=== PATIENT | female | born 1975 | race Caucasian/White ===

== ENCOUNTER 2021-04-15 15:25 | Inpatient (IN) ==
[2021-04-15 16:28] LABS: Bilirubin,Urine Negative (Negative); Blood,Urine Negative (Negative); Clarity,Urine Clear (Clear); Color,Urine Colorless (Yellow); Glucose,Urine (UA) Normal (Normal); Ketones,Urine Negative (Negative); Leukocyte Esterase,Urine Negative (Negative); Nitrite,Urine Negative (Negative); PH,Urine 6.5 pH Units (5.0-8.0); Protein,Urine Negative (Neg-Trace); Specific Gravity,Urine < 1.005 (1.010-1.025); Urobilinogen,Urine Normal (Normal)
[2021-04-15 16:31] LABS: Amphetamine Screen,Urine Negative ng/mL (Cutoff=1000); Barbiturate Screen,Urine Negative ng/mL (Cutoff=200); Benzodiazepines Screen,Urine Positive ng/mL (Cutoff=200); Cannabinoid Screen,Urine Negative ng/mL (Cutoff = 50); Cocaine Screen,Urine Negative ng/mL (Cutoff= 300); Opiate Screen,Urine Negative ng/mL (Cutoff=300); Phencyclidine Screen,Urine Negative ng/mL (Cutoff=25)
[2021-04-15 16:48] LABS: Acetaminophen < 10 mcg/mL (10-20); BUN/Creatinine Ratio 13 (6-26); Blood Urea Nitrogen 10 mg/dL (6-20); Carbon Dioxide 25 mEq/L (23-29); Chloride 100 mEq/L (98-107); Chol/HDL Ratio 5.3 (0-4.9); Cholesterol 208 mg/dL (< 200); Ethanol < 10 mg/dL (Less than 10); Glucose 98 mg/dL (70-105); HDL Cholesterol 39 mg/dL (40-59); LDL Cholesterol,Calculated 117 mg/dL (< 100); Osmolality,Calculated 287 (280-300); Potassium 4.3 mEq/L (3.5-5.1); Salicylate < 2.5 mg/dL (15.0-30.0); Sodium 139 mEq/L (136-145); Triglycerides 259 mg/dL (< 150); eGFR For African Americans > 60 (> 60); eGFR For Non-African Americans > 60 (> 60)
[2021-04-15 17:15] LABS: Adenovirus Not Detected (Not Detect); Bordetella Pertussis Not Detected (Not Detect); Chlamydophila pneumoniae Not Detected (Not Detect); Coronavirus 229E Not Detected (Not Detect); Coronavirus HKU1 Not Detected (Not Detect); Coronavirus NL63 Not Detected (Not Detect); Coronavirus OC43 Not Detected (Not Detect); Human Metapneumovirus Not Detected (Not Detect); Human Rhinovirus/Enterovirus Not Detected (Not Detect); Influenza A Subtype 2009 H1 Not Detected (Not Detect); Influenza B Not Detected (Not Detect); Mycoplasma pneumoniae Not Detected (Not Detect); Parainfluenza Virus 1 Not Detected (Not Detect); Parainfluenza Virus 2 Not Detected (Not Detect); Parainfluenza Virus 3 Not Detected (Not Detect); Parainfluenza Virus 4 Not Detected (Not Detect); Respiratory Syncytial Virus Not Detected (Not Detect); SARS-CoV-2 Not Detected (Not Detect)
[2021-04-15 17:23] LABS: Basophils # 0.1 K/mcL (0.0-0.2); Basophils % 0.5 %; Eosinophils # 0.4 K/mcL (0.0-0.6); Eosinophils % 2.8 %; Hemoglobin 14.5 g/dL (11.5-15.4); Immature Granulocytes % 0.3 % (0-4); Lymphocytes % 37.1 %; Mean Corpuscular HGB Conc 34.5 g/dL (31.6-35.5); Mean Corpuscular Hemoglobin 30.3 pg (28.0-33.3); Mean Corpuscular Volume 87.7 fL (83.0-100.0); Mean Platelet Volume 10.6 fL (9.4-12.4); Monocytes # 0.9 K/mcL (0.0-1.3); Monocytes % 6.8 %; Platelet Count 300 K/mcL (140-400); Red Blood Count 4.79 M/mcL (3.82-4.97); Red Cell Distribution Width 13.1 % (11.5-14.5); Segmented Neutrophils % 52.5 %; White Blood Count 13.3 K/mcL (4.3-11.1)
[2021-04-15 17:26] LABS: Lymphocytes # 4.9 K/mcL (0.6-4.6)
[2021-04-15 17:37] LABS: Estimated Average Glucose 128 mg/dl; Hemoglobin A1C 6.1 %
[2021-04-15] MEDS ORDERED: *HR* LORazepam 0.5 MG TABLET PO STA (19:16)
[2021-04-15] MEDS ORDERED: haloperidoL 5 MG TABLET PO PRN (20:49)
[2021-04-15] MEDS ORDERED: *HR* LORazepam 1 MG TABLET PO PRN (20:49)
[2021-04-15] MEDS ORDERED: MOM Conc 10 ML UD.LIQ PO PRN (20:49)
[2021-04-15] MEDS ORDERED: Mag Hydrox/Al Hydrox/Simeth 30 ML UDC PO PRN (20:49)
[2021-04-15] MEDS ORDERED: Haloperidol Lactate 5 MG/ML VIAL IM PRN (20:49)
[2021-04-15] MEDS ORDERED: *HR* LORazepam 2 MG/ML VIAL IM PRN (20:49)
[2021-04-15] MEDS ORDERED: Acetaminophen 325 MG TABLET PO PRN (20:49)
[2021-04-15] MEDS ORDERED: traZODone 50 MG TABLET PO PRN (20:49)
[2021-04-15] MEDS: ALPRAZolam 1 MG TABLET PO SCH (23:48)
[2021-04-15] MEDS: traZODone 50 MG TABLET PO SCH (23:48)
[2021-04-16] MEDS: Nicotine 21 MG PATCH.TD24 TD SCH (00:30)
[2021-04-16] MEDS: ALPRAZolam 1 MG TABLET PO SCH ×2 (08:05→21:43)
[2021-04-16] MEDS: Furosemide 40 MG TABLET PO SCH (08:08)
[2021-04-16] MEDS: Ziprasidone 20 MG CAPSULE PO SCH ×2 (09:33→17:23)
[2021-04-16] MEDS: hydrOXYzine pamoate 25 MG CAPSULE PO PRN (19:36)
[2021-04-16] MEDS: traZODone 50 MG TABLET PO SCH (21:43)
[2021-04-17] MEDS: ALPRAZolam 1 MG TABLET PO SCH ×2 (09:03→21:20)
[2021-04-17] MEDS: Ziprasidone 20 MG CAPSULE PO SCH ×2 (09:03→16:24)
[2021-04-17] MEDS: Furosemide 40 MG TABLET PO SCH (09:03)
[2021-04-17] MEDS: Nicotine 21 MG PATCH.TD24 TD SCH (09:04)
[2021-04-17] MEDS ORDERED: Sennosides 8.6 MG TABLET PO PRN (11:54)
[2021-04-17] MEDS: hydrOXYzine pamoate 25 MG CAPSULE PO PRN ×2 (12:10→19:02)
[2021-04-17] MEDS: traZODone 50 MG TABLET PO SCH (21:21)
[2021-04-18] MEDS: Nicotine 21 MG PATCH.TD24 TD SCH (08:29)
[2021-04-18] MEDS: ALPRAZolam 1 MG TABLET PO SCH ×2 (08:30→20:57)
[2021-04-18] MEDS: Furosemide 40 MG TABLET PO SCH (08:30)
[2021-04-18] MEDS: Ziprasidone 20 MG CAPSULE PO SCH ×2 (08:30→17:57)
[2021-04-18] MEDS: traZODone 50 MG TABLET PO SCH (20:57)
[2021-04-19] MEDS: ALPRAZolam 1 MG TABLET PO SCH ×2 (08:47→21:46)
[2021-04-19] MEDS: Furosemide 40 MG TABLET PO SCH (08:47)
[2021-04-19] MEDS: Ziprasidone 20 MG CAPSULE PO SCH ×2 (08:47→17:59)
[2021-04-19] MEDS: Nicotine 21 MG PATCH.TD24 TD SCH (08:47)
[2021-04-19] MEDS ORDERED: polyethylene glycoL 3350 17 GM POWD.PACK PO PRN (11:33)
[2021-04-19] MEDS: traZODone 50 MG TABLET PO SCH (21:46)
[2021-04-20] MEDS: Nicotine 21 MG PATCH.TD24 TD SCH (09:04)
[2021-04-20] MEDS: ALPRAZolam 1 MG TABLET PO SCH ×2 (09:06→21:42)
[2021-04-20] MEDS: Furosemide 40 MG TABLET PO SCH (09:07)
[2021-04-20] MEDS: Ziprasidone 20 MG CAPSULE PO SCH ×2 (09:07→17:42)
[2021-04-20] MEDS: hydrOXYzine pamoate 25 MG CAPSULE PO PRN (18:14)
[2021-04-20] MEDS: traZODone 50 MG TABLET PO SCH (21:43)
[2021-04-21] MEDS: Nicotine 21 MG PATCH.TD24 TD SCH (08:58)
[2021-04-21] MEDS: Furosemide 40 MG TABLET PO SCH (08:59)
[2021-04-21] MEDS: Ziprasidone 20 MG CAPSULE PO SCH ×2 (08:59→18:13)
[2021-04-21] MEDS: ALPRAZolam 1 MG TABLET PO SCH ×2 (08:59→21:50)
[2021-04-21] MEDS: traZODone 50 MG TABLET PO SCH (21:51)
[2021-04-22] MEDS: Nicotine 21 MG PATCH.TD24 TD SCH (09:09)
[2021-04-22] MEDS: Ziprasidone 20 MG CAPSULE PO SCH ×2 (09:11→16:23)
[2021-04-22] MEDS: ALPRAZolam 1 MG TABLET PO SCH ×2 (09:11→21:56)
[2021-04-22] MEDS: Furosemide 40 MG TABLET PO SCH (09:12)
[2021-04-22] MEDS: hydrOXYzine pamoate 25 MG CAPSULE PO PRN (16:27)
[2021-04-22] MEDS: traZODone 50 MG TABLET PO SCH (21:57)
[2021-04-23] MEDS: Nicotine 21 MG PATCH.TD24 TD SCH (09:00)
[2021-04-23] MEDS: Furosemide 40 MG TABLET PO SCH (09:01)
[2021-04-23] MEDS: Ziprasidone 20 MG CAPSULE PO SCH ×2 (09:01→17:37)
[2021-04-23] MEDS: ALPRAZolam 1 MG TABLET PO SCH (09:01)
[2021-04-23] MEDS: clonazePAM 1 MG TABLET PO SCH (21:47)
[2021-04-23] MEDS: traZODone 50 MG TABLET PO SCH (22:04)
[2021-04-23 22:52] LABS: Bacteria,Urine Few per hpf (None-Few); Bilirubin,Urine Negative (Negative); Blood,Urine Negative (Negative); Calcium Oxalate Crystals,Urine Present per hpf; Clarity,Urine Clear (Clear); Color,Urine Colorless (Yellow); Glucose,Urine (UA) Normal (Normal); Ketones,Urine Negative (Negative); Leukocyte Esterase,Urine Large (Negative); Nitrite,Urine Negative (Negative); Protein,Urine Negative (Neg-Trace); RBC,Urine 0-3 per hpf (0-3); Specific Gravity,Urine 1.005 (1.010-1.025); Squamous Epithelial Cell,Urine Few per hpf (None-Few); Urobilinogen,Urine Normal (Normal); WBC,Urine 15-30 per hpf (0-3)
[2021-04-24] MEDS: Nicotine 21 MG PATCH.TD24 TD SCH (08:58)
[2021-04-24] MEDS: clonazePAM 1 MG TABLET PO SCH ×2 (08:58→21:46)
[2021-04-24] MEDS: Ziprasidone 20 MG CAPSULE PO SCH ×2 (08:58→15:34)
[2021-04-24] MEDS: Furosemide 40 MG TABLET PO SCH (08:58)
[2021-04-24] MEDS: traZODone 50 MG TABLET PO SCH (21:46)
[2021-04-24] MEDS: Sulfamethoxazole/Trimeth DS 1 EACH TABLET PO SCH (21:47)
[2021-04-24] MEDS: hydrOXYzine pamoate 25 MG CAPSULE PO PRN (23:21)
[2021-04-25] MEDS: clonazePAM 1 MG TABLET PO SCH ×2 (08:52→21:18)
[2021-04-25] MEDS: Sulfamethoxazole/Trimeth DS 1 EACH TABLET PO SCH ×2 (08:52→21:17)
[2021-04-25] MEDS: Furosemide 40 MG TABLET PO SCH (08:53)
[2021-04-25] MEDS: Ziprasidone 20 MG CAPSULE PO SCH ×2 (08:53→17:09)
[2021-04-25] MEDS: Nicotine 21 MG PATCH.TD24 TD SCH (08:53)
[2021-04-25] MEDS: traZODone 50 MG TABLET PO SCH (21:17)
[2021-04-26] MEDS: Ziprasidone 20 MG CAPSULE PO SCH ×2 (09:11→16:08)
[2021-04-26] MEDS: Furosemide 40 MG TABLET PO SCH (09:11)
[2021-04-26] MEDS: Sulfamethoxazole/Trimeth DS 1 EACH TABLET PO SCH ×2 (09:11→21:51)
[2021-04-26] MEDS: clonazePAM 1 MG TABLET PO SCH ×2 (09:12→21:50)
[2021-04-26] MEDS: Nicotine 21 MG PATCH.TD24 TD SCH (09:12)
[2021-04-26] MEDS: traZODone 50 MG TABLET PO SCH (21:50)
[2021-04-27] MEDS: Nicotine 21 MG PATCH.TD24 TD SCH (08:40)
[2021-04-27] MEDS: Sulfamethoxazole/Trimeth DS 1 EACH TABLET PO SCH ×2 (08:40→21:28)
[2021-04-27] MEDS: clonazePAM 1 MG TABLET PO SCH ×2 (08:42→21:27)
[2021-04-27] MEDS: Ziprasidone 20 MG CAPSULE PO SCH ×2 (08:42→16:20)
[2021-04-27] MEDS: Furosemide 40 MG TABLET PO SCH (08:47)
[2021-04-27] MEDS: traZODone 50 MG TABLET PO SCH (21:28)
[2021-04-28] MEDS: hydrOXYzine pamoate 25 MG CAPSULE PO PRN (04:14)
[2021-04-28] MEDS: clonazePAM 1 MG TABLET PO SCH ×2 (09:15→21:41)
[2021-04-28] MEDS: Furosemide 40 MG TABLET PO SCH (09:15)
[2021-04-28] MEDS: Sulfamethoxazole/Trimeth DS 1 EACH TABLET PO SCH ×2 (09:15→21:41)
[2021-04-28] MEDS: Ziprasidone 20 MG CAPSULE PO SCH ×2 (09:15→16:40)
[2021-04-28] MEDS: Nicotine 21 MG PATCH.TD24 TD SCH (10:16)
[2021-04-28] MEDS: traZODone 50 MG TABLET PO SCH (21:41)
[2021-04-29] MEDS: Nicotine 21 MG PATCH.TD24 TD SCH (09:07)
[2021-04-29] MEDS: clonazePAM 1 MG TABLET PO SCH (09:10)
[2021-04-29] MEDS: Furosemide 40 MG TABLET PO SCH (09:10)
[2021-04-29] MEDS: Ziprasidone 20 MG CAPSULE PO SCH (09:10)
[2021-04-29] MEDS: Sulfamethoxazole/Trimeth DS 1 EACH TABLET PO SCH (09:10)
[2021-04-29 10:11] VITALS: BP 129/78
[2021-04-29] MEDS: hydrOXYzine pamoate 25 MG CAPSULE PO PRN (12:01)
== END 2021-04-29 13:20 | disposition home or self-care (01) | DRG 885 ==
LOC: EMEROOARM 15:25 → 1ANU 20:34
PROVIDERS: ADMIT Psychiatry & Neurology Forensic Psychiatry; ATTEND Psychiatry & Neurology Forensic Psychiatry

== ENCOUNTER 2022-04-10 01:54 | Inpatient (IN) ==
[2022-04-10] MEDS ORDERED: Naloxone 0.4 MG/ML INJ IVP PRN (03:26)
[2022-04-10] MEDS ORDERED: Ondansetron 4 MG/2 ML VIAL IVP PRN (03:26)
[2022-04-10] MEDS ORDERED: Melatonin 3 MG TABLET PO PRN (03:26)
[2022-04-10 04:26] LABS: Alanine Aminotransferase 18 Units/L (7-52); Albumin 3.4 g/dL (3.5-5.7); Albumin/Globulin Ratio 1.5 (1.1-2.2); Alkaline Phosphatase 50 Units/L (34-104); Aspartate Amino Transferase 14 Units/L (13-39); Bilirubin,Total 0.4 mg/dL (0.3-1.0); Blood Urea Nitrogen < 2 mg/dL (6-20); Calcium 7.7 mg/dL (8.6-10.3); Carbon Dioxide 23 mEq/L (23-29); Chloride 98 mEq/L (98-107); Globulin 2.2 g/dL (2.4-3.5); Glucose 114 mg/dL (70-105); Potassium 3.1 mEq/L (3.5-5.1); Sodium 128 mEq/L (136-145); Total Protein 5.6 g/dL (6.4-8.9); eGFR For African Americans > 60 (> 60); eGFR For Non-African Americans > 60 (> 60)
[2022-04-10] MEDS ORDERED: Potassium Chloride Elixir 20 MEQ/15 ML UDC PO ONE (05:58)
[2022-04-10] MEDS ORDERED: 0.9 % Sodium Chloride 1,000 ML IVC SCH (06:00)
[2022-04-10 10:38] LABS: Blood Urea Nitrogen < 2 mg/dL (6-20); Calcium 8.4 mg/dL (8.6-10.3); Carbon Dioxide 24 mEq/L (23-29); Chloride 103 mEq/L (98-107); Glucose 88 mg/dL (70-105); Potassium 4.1 mEq/L (3.5-5.1); Sodium 132 mEq/L (136-145); eGFR For African Americans > 60 (> 60); eGFR For Non-African Americans > 60 (> 60)
[2022-04-10 19:51] LABS: BUN/Creatinine Ratio 5 (6-26); Blood Urea Nitrogen 4 mg/dL (6-20); Calcium 8.6 mg/dL (8.6-10.3); Carbon Dioxide 23 mEq/L (23-29); Chloride 105 mEq/L (98-107); Glucose 99 mg/dL (70-105); Osmolality,Calculated 277 (280-300); Potassium 4.1 mEq/L (3.5-5.1); Sodium 135 mEq/L (136-145); eGFR For African Americans > 60 (> 60); eGFR For Non-African Americans > 60 (> 60)
[2022-04-10] MEDS: Acetaminophen 325 MG TABLET PO PRN (22:53)
[2022-04-11] MEDS: cefTRIAXone 1,000 MG in 0.9 % Sodium Chloride 10 ML IVPB SCH (00:39)
[2022-04-11 05:07] LABS: Basophils # 0.1 K/mcL (0.0-0.2); Basophils % 0.8 %; Eosinophils # 0.3 K/mcL (0.0-0.6); Eosinophils % 3.2 %; Hematocrit 33.9 % (35.3-44.9); Hemoglobin 11.2 g/dL (11.5-15.4); Immature Granulocytes % 0.4 % (0-4); Lymphocytes # 3.2 K/mcL (0.6-4.6); Lymphocytes % 35.9 %; Mean Corpuscular Hemoglobin 29.6 pg (28.0-33.3); Mean Corpuscular Volume 89.4 fL (83.0-100.0); Monocytes % 11.1 %; Neutrophils # 4.4 K/mcL (1.6-8.9); Platelet Count 355 K/mcL (140-400); Red Blood Count 3.79 M/mcL (3.82-4.97); Red Cell Distribution Width 13.9 % (11.5-14.5); Segmented Neutrophils % 48.6 %
[2022-04-11] MEDS: OXcarbazepine 150 MG TABLET PO SCH ×2 (08:59→20:44)
[2022-04-11] MEDS: amLODIPine 5 MG TABLET PO SCH (08:59)
[2022-04-11] MEDS ORDERED: haloperidoL 5 MG TABLET PO SCH (09:00)
[2022-04-11] MEDS ORDERED: LEVOMILNACIPRAN HCL 80 MG PO SCH (09:00)
[2022-04-11] MEDS ORDERED: BuPROPion SR (12 HR) 150 MG TABLET PO SCH (09:00)
[2022-04-11 09:15] LABS: BUN/Creatinine Ratio 9 (6-26); Blood Urea Nitrogen 5 mg/dL (6-20); Calcium 9.1 mg/dL (8.6-10.3); Carbon Dioxide 24 mEq/L (23-29); Chloride 103 mEq/L (98-107); Glucose 92 mg/dL (70-105); Magnesium 1.7 mg/dL (1.6-2.6); Osmolality,Calculated 275 (280-300); Phosphorous 3.7 mg/dL (2.7-4.5); Potassium 4.1 mEq/L (3.5-5.1); Sodium 134 mEq/L (136-145); eGFR For African Americans > 60 (> 60); eGFR For Non-African Americans > 60 (> 60)
[2022-04-11] MEDS: BuPROPion XL (24 HR) 150 MG TABLET PO SCH (11:19)
[2022-04-11] MEDS: *HR* Heparin 5,000 UNIT/ML VIAL SQ SCH (17:34)
[2022-04-11] MEDS: Acetaminophen 325 MG TABLET PO PRN (20:44)
[2022-04-11] MEDS ORDERED: Sennosides 8.6 MG TABLET PO SCH (21:00)
[2022-04-12] MEDS: cefTRIAXone 1,000 MG in 0.9 % Sodium Chloride 10 ML IVPB SCH (00:50)
[2022-04-12 03:53] LABS: Basophils # 0.1 K/mcL (0.0-0.2); Basophils % 0.9 %; Eosinophils # 0.4 K/mcL (0.0-0.6); Eosinophils % 3.8 %; Hematocrit 33.5 % (35.3-44.9); Hemoglobin 11.1 g/dL (11.5-15.4); Immature Granulocytes % 0.4 % (0-4); Lymphocytes # 3.2 K/mcL (0.6-4.6); Lymphocytes % 35.3 %; Mean Corpuscular HGB Conc 33.1 g/dL (31.6-35.5); Mean Corpuscular Hemoglobin 29.4 pg (28.0-33.3); Mean Corpuscular Volume 88.9 fL (83.0-100.0); Mean Platelet Volume 9.5 fL (9.4-12.4); Monocytes # 0.8 K/mcL (0.0-1.3); Neutrophils # 4.6 K/mcL (1.6-8.9); Platelet Count 356 K/mcL (140-400); Red Blood Count 3.77 M/mcL (3.82-4.97); Red Cell Distribution Width 13.7 % (11.5-14.5); Segmented Neutrophils % 50.6 %; White Blood Count 9.1 K/mcL (4.3-11.1)
[2022-04-12 04:12] LABS: BUN/Creatinine Ratio 19 (6-26); Blood Urea Nitrogen 12 mg/dL (6-20); Calcium 9.1 mg/dL (8.6-10.3); Carbon Dioxide 24 mEq/L (23-29); Chloride 103 mEq/L (98-107); Glucose 95 mg/dL (70-105); Magnesium 1.7 mg/dL (1.6-2.6); Osmolality,Calculated 280 (280-300); Phosphorous 5.3 mg/dL (2.7-4.5); Potassium 3.9 mEq/L (3.5-5.1); Sodium 135 mEq/L (136-145); eGFR For African Americans > 60 (> 60); eGFR For Non-African Americans > 60 (> 60)
[2022-04-12] MEDS: *HR* Heparin 5,000 UNIT/ML VIAL SQ SCH (06:33)
[2022-04-12] MEDS: BuPROPion XL (24 HR) 150 MG TABLET PO SCH (09:09)
[2022-04-12] MEDS: amLODIPine 5 MG TABLET PO SCH (09:09)
[2022-04-12] MEDS: OXcarbazepine 150 MG TABLET PO SCH (09:09)
[2022-04-12 11:36] VITALS: BP 109/71; PULSE 116; TEMP 98; O2SAT 96
[2022-04-12 13:33] LABS: Adenovirus Not Detected (Not Detect); Bordetella Pertussis Not Detected (Not Detect); Chlamydophila pneumoniae Not Detected (Not Detect); Coronavirus 229E Not Detected (Not Detect); Coronavirus HKU1 Not Detected (Not Detect); Coronavirus NL63 Not Detected (Not Detect); Coronavirus OC43 Not Detected (Not Detect); Human Metapneumovirus Not Detected (Not Detect); Human Rhinovirus/Enterovirus Not Detected (Not Detect); Influenza A Subtype 2009 H1 Not Detected (Not Detect); Influenza B Not Detected (Not Detect); Mycoplasma pneumoniae Not Detected (Not Detect); Parainfluenza Virus 1 Not Detected (Not Detect); Parainfluenza Virus 2 Not Detected (Not Detect); Parainfluenza Virus 3 Not Detected (Not Detect); Parainfluenza Virus 4 Not Detected (Not Detect); Respiratory Syncytial Virus Not Detected (Not Detect); SARS-CoV-2 Not Detected (Not Detect)
[2022-04-12] MEDS ORDERED: *HR* LORazepam 1 MG TABLET PO PRN (16:42)
[2022-04-12] MEDS ORDERED: *HR* LORazepam 2 MG/ML VIAL IM PRN (16:42)
[2022-04-12] MEDS ORDERED: Ziprasidone 20 MG CAPSULE PO PRN (17:04)
[2022-04-12] MEDS ORDERED: Sennosides 8.6 MG TABLET PO PRN (17:09)
[2022-04-12] MEDS ORDERED: Acetaminophen 325 MG TABLET PO PRN (17:11)
[2022-04-12] MEDS ORDERED: OXcarbazepine 150 MG TABLET PO SCH (21:00)
[2022-04-13] MEDS ORDERED: amLODIPine 5 MG TABLET PO SCH (09:00)
[2022-04-13] MEDS ORDERED: Nicotine 21 MG PATCH.TD24 TD SCH (09:00)
[2022-04-13] MEDS ORDERED: Vitamin B Complex/Vit C/Vit E 1 EACH TABLET PO SCH (09:00)
[2022-04-13] MEDS ORDERED: Furosemide 20 MG TABLET PO SCH (09:00)
== END 2022-04-12 14:56 | disposition home or self-care (01) | DRG 872 ==
LOC: 3ANU → INTOOBSV 02:22 → OBSVTOIN 02:22 → SUATTDRO 02:22
PROVIDERS: ADMIT Internal Medicine; ATTEND Internal Medicine

== ENCOUNTER 2022-04-12 15:20 | Inpatient (IN) ==
[2022-04-12] MEDS ORDERED: Saliva Stimulant 44.3ml BOTTLE PO PRN (19:07)
[2022-04-12] MEDS ORDERED: Ziprasidone 20 MG CAPSULE PO PRN (19:11)
[2022-04-12] MEDS ORDERED: Sennosides 8.6 MG TABLET PO PRN (19:14)
[2022-04-12] MEDS ORDERED: *HR* LORazepam 2 MG/ML VIAL IM PRN (19:19)
[2022-04-12] MEDS ORDERED: *HR* LORazepam 1 MG TABLET PO PRN (19:19)
[2022-04-12] MEDS ORDERED: Ziprasidone 10 MG, Closed System Device IM Kit 1 EACH in Water for inj. (sterile) 0.5 ML IM PRN (19:36)
[2022-04-12] MEDS: OXcarbazepine 150 MG TABLET PO SCH (21:09)
[2022-04-12] MEDS ORDERED: Ziprasidone 10 MG in Water for inj. (sterile) 0.5 ML IM PRN (21:30)
[2022-04-12] MEDS ORDERED: QUEtiapine Fumarate 100 MG TABLET PO SCH (21:30)
[2022-04-13] MEDS: Nicotine 21 MG PATCH.TD24 TD SCH (09:02)
[2022-04-13] MEDS: Furosemide 20 MG TABLET PO SCH (09:04)
[2022-04-13] MEDS: amLODIPine 5 MG TABLET PO SCH (09:05)
[2022-04-13] MEDS: Vitamin B Complex/Vit C/Vit E 1 EACH TABLET PO SCH (09:06)
[2022-04-13] MEDS: OXcarbazepine 150 MG TABLET PO SCH ×2 (09:06→20:55)
[2022-04-13] MEDS: QUEtiapine Fumarate 100 MG TABLET PO PRN (20:55)
[2022-04-14] MEDS: Furosemide 20 MG TABLET PO SCH (09:01)
[2022-04-14] MEDS: OXcarbazepine 150 MG TABLET PO SCH ×2 (09:02→21:44)
[2022-04-14] MEDS: Nicotine 21 MG PATCH.TD24 TD SCH (09:02)
[2022-04-14] MEDS: Vitamin B Complex/Vit C/Vit E 1 EACH TABLET PO SCH (09:02)
[2022-04-14] MEDS: amLODIPine 5 MG TABLET PO SCH (09:02)
[2022-04-14] MEDS: Saliva Stimulant 44.3ml BOTTLE PO SCH ×7 (12:24→23:33)
[2022-04-14] MEDS: QUEtiapine Fumarate 100 MG TABLET PO PRN (21:44)
[2022-04-15] MEDS: Saliva Stimulant 44.3ml BOTTLE PO SCH ×11 (02:15→22:42)
[2022-04-15] MEDS: Vitamin B Complex/Vit C/Vit E 1 EACH TABLET PO SCH (09:04)
[2022-04-15] MEDS: amLODIPine 5 MG TABLET PO SCH (09:05)
[2022-04-15] MEDS: Furosemide 20 MG TABLET PO SCH (09:05)
[2022-04-15] MEDS: OXcarbazepine 150 MG TABLET PO SCH ×2 (09:06→21:28)
[2022-04-15] MEDS: Nicotine 21 MG PATCH.TD24 TD SCH (09:07)
[2022-04-15] MEDS: QUEtiapine Fumarate 100 MG TABLET PO PRN (21:28)
[2022-04-15] MEDS ORDERED: Mag Hydrox/Al Hydrox/Simeth 30 ML UDC PO PRN (21:36)
[2022-04-16] MEDS: Saliva Stimulant 44.3ml BOTTLE PO SCH ×12 (02:05→21:59)
[2022-04-16] MEDS: Vitamin B Complex/Vit C/Vit E 1 EACH TABLET PO SCH (09:57)
[2022-04-16] MEDS: OXcarbazepine 150 MG TABLET PO SCH ×2 (09:57→20:58)
[2022-04-16] MEDS: amLODIPine 5 MG TABLET PO SCH (09:57)
[2022-04-16] MEDS: Nicotine 21 MG PATCH.TD24 TD SCH (09:58)
[2022-04-16] MEDS: Furosemide 20 MG TABLET PO SCH (09:58)
[2022-04-16 20:21] VITALS: O2SAT 98
[2022-04-16] MEDS: QUEtiapine Fumarate 100 MG TABLET PO PRN (21:01)
[2022-04-17] MEDS: Saliva Stimulant 44.3ml BOTTLE PO SCH ×8 (01:42→13:59)
[2022-04-17] MEDS: Vitamin B Complex/Vit C/Vit E 1 EACH TABLET PO SCH (09:16)
[2022-04-17] MEDS: amLODIPine 5 MG TABLET PO SCH (09:17)
[2022-04-17] MEDS: OXcarbazepine 150 MG TABLET PO SCH (09:18)
[2022-04-17] MEDS: Furosemide 20 MG TABLET PO SCH (09:18)
[2022-04-17] MEDS: Nicotine 21 MG PATCH.TD24 TD SCH (09:19)
[2022-04-17 10:21] VITALS: BP 143/84; PULSE 88; TEMP 97.3
[2022-04-17 10:29] LABS: Basophils % 0.5 %; Eosinophils # 0.3 K/mcL (0.0-0.6); Eosinophils % 3.7 %; Hematocrit 38.3 % (35.3-44.9); Immature Granulocytes % 0.5 % (0-4); Lymphocytes # 2.3 K/mcL (0.6-4.6); Lymphocytes % 27.3 %; Mean Corpuscular HGB Conc 34.2 g/dL (31.6-35.5); Mean Corpuscular Hemoglobin 29.7 pg (28.0-33.3); Mean Corpuscular Volume 86.8 fL (83.0-100.0); Mean Platelet Volume 8.8 fL (9.4-12.4); Monocytes # 0.9 K/mcL (0.0-1.3); Neutrophils # 4.7 K/mcL (1.6-8.9); Platelet Count 351 K/mcL (140-400); Red Blood Count 4.41 M/mcL (3.82-4.97); Red Cell Distribution Width 13.2 % (11.5-14.5); White Blood Count 8.3 K/mcL (4.3-11.1)
[2022-04-17 10:31] LABS: Hemoglobin 13.1 g/dL (11.5-15.4)
[2022-04-17 10:54] LABS: Alanine Aminotransferase 26 Units/L (7-52); Albumin/Globulin Ratio 1.5 (1.1-2.2); Alkaline Phosphatase 68 Units/L (34-104); Aspartate Amino Transferase 17 Units/L (13-39); BUN/Creatinine Ratio 14 (6-26); Bilirubin,Total 0.3 mg/dL (0.3-1.0); Blood Urea Nitrogen 9 mg/dL (6-20); Calcium 9.4 mg/dL (8.6-10.3); Carbon Dioxide 28 mEq/L (23-29); Chloride 94 mEq/L (98-107); Globulin 2.7 g/dL (2.4-3.5); Glucose 99 mg/dL (70-105); Osmolality,Calculated 267 (280-300); Potassium 4.3 mEq/L (3.5-5.1); Sodium 129 mEq/L (136-145); Total Protein 6.7 g/dL (6.4-8.9); eGFR For African Americans > 60 (> 60); eGFR For Non-African Americans > 60 (> 60)
[2022-04-17 11:12] LABS: Thyroid Stimulating Hormone 1.596 mcIU/mL (0.340-5.600)
[2022-04-17 12:02] LABS: Estimated Average Glucose 114 mg/dl; Hemoglobin A1C 5.6 %
[2022-04-17 13:03] LABS: Bilirubin,Urine Negative (Negative); Blood,Urine Negative (Negative); Clarity,Urine Clear (Clear); Color,Urine Light-Yellow (Yellow); Glucose,Urine (UA) Normal (Normal); Ketones,Urine Negative (Negative); Leukocyte Esterase,Urine Negative (Negative); Nitrite,Urine Negative (Negative); Protein,Urine Negative (Neg-Trace); Specific Gravity,Urine 1.006 (1.010-1.025); Urobilinogen,Urine Normal (Normal)
== END 2022-04-17 15:35 | disposition home or self-care (01) | DRG 885 ==
LOC: 1ANU 15:20
PROVIDERS: ADMIT Psychiatry & Neurology Forensic Psychiatry; ATTEND Psychiatry & Neurology Forensic Psychiatry